=== PATIENT | female | born 1960 | race Caucasian/White ===

== ENCOUNTER 2021-06-09 10:52 | Day surgery (SDC) | payer OTHER ==
[~2021-06-09] VITALS: Ht 172.7 cm; Wt 84.5 kg
[~2021-06-09 10:52] MED LIST: CRUTCH4 USE; DIAZ5 PO; DOCU100 PO; HYDACE5 PO; HYDR1TAB94 PO; IBUP800 PO; LEVSOD175 PO; ONDA8 PO; OXYACE5T PO; Percocet 10-321 EACH PO; Percocet 5-3251 EACH PO; ZOLP10 PO; ZOLP5 PO
[2021-06-09] MEDS ORDERED: GABA100 (11:19)
[2021-06-09] MEDS ORDERED: ASPIR 8181 MG (11:19)
== END 2021-06-09 14:23 | disposition home or self-care (01) ==
LOC: ORSCSDS 10:52
DX: Z12.11 Encounter for screening for malignant neoplasm of colon (principal); D12.2 Benign neoplasm of ascending colon; D12.5 Benign neoplasm of sigmoid colon; I10 Essential (primary) hypertension; G47.33 Obstructive sleep apnea (adult) (pediatric); F17.210 Nicotine dependence, cigarettes, uncomplicated; E78.5 Hyperlipidemia, unspecified; E03.9 Hypothyroidism, unspecified; Z79.899 Other long term (current) drug therapy; Z79.82 Long term (current) use of aspirin
CPT/HCPCS: 88305; J2704; J7120